=== PATIENT | male | born 1970 | race Asian ===

== ENCOUNTER 2017-08-21 11:30 | Inpatient (IN) | payer BC, OTHER ==
[2017-08-21] MEDS ORDERED: ONDANSETRON 4 MG/2 ML VIAL IVPUSH ONE (12:16)
[2017-08-21] MEDS ORDERED: SODIUM CHLORIDE 1,000 ML IV STA ×3 (12:16→18:44)
[2017-08-21] MEDS ORDERED: ONDANSETRON 4 MG/2 ML VIAL ONE (12:25)
--- NOTE | 2017-08-21 12:25 | PDOC ---
History of Present Illness - General Chief Complaint: Lightheaded Stated Complaint: LETHARGIC, NAUSEA Time Seen by Provider: 08/21/17 11:59 History Source: Patient - History of Present Illness Timing/Duration: other Severity: severe Associated Symptoms: reports: nausea/vomiting, weakness. denies: chest pain, cough, fever/chills, shortness of breath Past History - Past Medical History Allergies/Adverse Reactions: Allergies Allergy/AdvReac Type Severity Reaction Status Date / Time No Known Allergies Allergy Verified 08/21/17 11:44 Home Medications: Ambulatory Orders NK [No Known Home Medication] 08/21/17 Other medical history: none - Surgical History Cholecystectomy: Yes - Immunization History Immunization Up to Date: Yes - Suicide/Smoking/Psychosocial Hx Smoking History: Never smoked Hx Alcohol Use: No Drug/Substance Use Hx: No Review of Systems - Review of Systems Constitutional: No: Chills, Fever Respiratory: No: Shortness of Breath Cardiac (ROS): No: Chest Pain ABD/GI: Yes: Diarrhea, Nausea. No: Vomiting : No: Dysuria Neurological: Yes: Dizziness. No: Headache *Physical Exam - Vital Signs Last Vital Signs Temp Pulse Resp BP Pulse Ox 98.5 F 169 H 20 134/89 99 08/21/17 11:44 08/21/17 11:44 08/21/17 11:44 08/21/17 11:44 08/21/17 11:44 - Physical Exam Comments: 08/21/17 12:25 ill appearing General Appearance: Yes: Appropriately Dressed HEENT: positive: Normal Voice, Other (fillings in place, no e/o infection or dental abscess) Neck: positive: Supple Respiratory/Chest: positive: Lungs Clear, Normal Breath Sounds. negative: Respiratory Distress Cardiovascular: positive: S1, S2, Tachycardia Gastrointestinal/Abdominal: positive: Soft. negative: Tender Integumentary: positive: Dry, Warm Neurologic: positive: Fully Oriented, Alert, Normal Mood/Affect Heart Score/ECG Review - ECG Intrepretation Comment:: 08/21/17 13:53 Sinus tach to 132 BPM ED Treatment Course - LABORATORY CBC & Chemistry Diagram: 08/21/17 12:35 08/21/17 15:19 Medical Decision Making - Medical Decision Making 08/21/17 12:20 47-year-old male denies any past medical history, here with weakness, with dizziness and nausea. Patient states symptoms started approximately 5 days ago after having multiple fillings placed by his dentist. States at the time, he also had x-rays done. Patient states when he went home he began feeling dizzy and unwell and did have 1-2 episodes of non-bloody watery diarrhea. Patient states he feels that symptoms are due to to radiation from x-ray. No fever or chills. Denies chest pain, shortness of breath or palpitations an no h/o cradiac/valvular disease. No history of similar symptoms. No sick contacts or recent travel. No dental pain or facial pain at this time See exam Weakness w/ nausea and diarrhea shortly after dental procedure 5 days ago No e/o dental infection at this time No cardiac/VHD No RF for serious dysentery Pt ill jamie and tachy to 130s at triage, afebrile ?viral, doubt PE as dental procedure only 1 hr per pt -IVF -ekg -labs -reassess 08/21/17 12:25 08/21/17 15:57 Labs all unremarkable. Pt continues to be tachy to 120s on the monitor despite IVF and continues to feel profoundly weak. Will send off TSH and discuss dispo w / ED attg 08/21/17 16:02 As per ED attg, pt to be admitted for further evaluation and workup 08/21/17 16:48 Pt's BP now 90s/80s. IVF in progress. ?multiple nodules on CXR. CT chest pending. Case discussed with Dr. Miller. requesting cardiology consult at this time and continued hydration *DC/Admit/Observation/Transfer Diagnosis at time of Disposition: Weakness, Tachycardia - Discharge Dispostion Condition at time of disposition: Fair Admit: Yes
[2017-08-21 12:48] LABS: BASOPHIL 0.3 % (0-2.0); EOSINOPHIL 0.2 % (0-4.5); MCH 29.1 pg (25.7-33.7); MCHC 34.2 g/dl (32.0-35.9); MEAN CELL VOLUME 84.9 fl (80-96); MEAN PLT VOLUME 8.9 fl (7.5-11.1); NEUTROPHILS 87.2 % (42.8-82.8); PLATELET COUNT 268 K/MM3 (134-434); RDW 12.9 % (11.9-15.9); WHITE BLOOD COUNT 9.8 K/mm3 (4.0-10.0)
[2017-08-21 13:16] LABS: URINE APPEARANCE CLOUDY; URINE BILIRUBIN NEGATIVE (NEGATIVE); URINE BLOOD NEGATIVE (NEGATIVE); URINE GLUCOSE (UA) NEGATIVE (NEGATIVE); URINE KETONE NEGATIVE (NEGATIVE); URINE LEUK ESTERASE NEGATIVE (NEGATIVE); URINE NITRITE NEGATIVE (NEGATIVE); URINE PROTEIN NEGATIVE (NEGATIVE); URINE UROBILINOGEN NEGATIVE mg/dL (0.2-1.0)
[2017-08-21 13:18] LABS: URINE COLOR YELLOW
[2017-08-21 15:37] LABS: ALBUMIN 3.7 g/dl (3.4-5.0); ANION GAP 7 (8-16); CALCIUM 8.9 mg/dL (8.5-10.1); CO2 25 mmol/L (21-32); GLUCOSE,RANDOM 102 mg/dL (74-106)
[2017-08-21 15:39] LABS: BILIRUBIN,TOTAL 0.4 mg/dL (0.2-1.0); CREATININE 0.8 mg/dL (0.7-1.3); SGOT/AST 13 U/L (15-37); SGPT/ALT 18 U/L (12-78); TOT PROT 6.8 g/dl (6.4-8.2)
[2017-08-21 15:42] LABS: ALK PHOS 99 U/L (45-117); CPK 82 IU/L (39-308); TROPONIN I < 0.02 ng/ml (0.00-0.05)
--- NOTE | 2017-08-21 20:54 | HP ---
Admitting History and Physical - Primary Care Physician PCP: Myra Miller - Admission Chief Complaint: weakness History of Present Illness: 47-year-old male denies any past medical history, here with weakness, with dizziness and nausea. Patient states symptoms started approximately 5 days ago after having multiple fillings placed by his dentist. States at the time, he also had x-rays done, no injections given in the mouth. Patient states when he went home he began feeling dizzy and unwell and did have 1-2 episodes of non- bloody watery diarrhea. Patient states he feels that symptoms are due to to radiation from x-ray. No fever or chills. Denies chest pain, shortness of breath or palpitations an no h/o cradiac/valvular disease. - Past Medical History Gastrointestinal: Yes: Crohn's Disease (history of) - Smoking History Smoking history: Never smoked - Alcohol/Substance Use Hx Alcohol Use: No Home Medications - Allergies Allergies/Adverse Reactions: Allergies Allergy/AdvReac Type Severity Reaction Status Date / Time No Known Allergies Allergy Verified 08/21/17 11:44 - Home Medications Home Medications: Ambulatory Orders NK [No Known Home Medication] 08/21/17 Physical Examination Vital Signs: Vital Signs Temperature 97.7 F 08/21/17 19:30 Pulse Rate 93 H 08/21/17 19:30 Respiratory Rate 18 08/21/17 19:30 Blood Pressure 144/85 08/21/17 19:30 O2 Sat by Pulse Oximetry (%) 100 08/21/17 18:42 Constitutional: Yes: No Distress HENT: Yes: Atraumatic Neck: Yes: Supple Cardiovascular: Yes: Tachycardia Respiratory: Yes: CTA Bilaterally Gastrointestinal: Yes: Normal Bowel Sounds Extremities: Yes: WNL Edema: No Peripheral Pulses WNL: Yes Neurological: Yes: WNL, Alert, Oriented Imaging - Results Cat Scan: Report Reviewed Problem List - Problems (1) Tachycardia Assessment/Plan: on tele monitor cardiology note reviewed Code(s): R00.0 - TACHYCARDIA, UNSPECIFIED (2) Weakness Assessment/Plan: feeling better Code(s): R53.1 - WEAKNESS (3) Pulmonary nodule Assessment/Plan: pulmonary note reviewed nothing to be done at this point Code(s): R91.1 - SOLITARY PULMONARY NODULE Assessment/Plan Laboratory Tests 08/21/17 08/21/17 08/21/17 11:30 12:10 12:35 WBC 9.8 RBC 5.47 Hgb 15.9 Hct 46.5 MCV 84.9 MCH 29.1 MCHC 34.2 RDW 12.9 Plt Count 268 MPV 8.9 Neutrophils % 87.2 H Lymphocytes % 8.6 Monocytes % 3.7 L Eosinophils % 0.2 Basophils % 0.3 D-Dimer < 200 Sodium Potassium Chloride Carbon Dioxide Anion Gap BUN Creatinine Creat Clearance w eGFR Random Glucose Lactic Acid Calcium Total Bilirubin AST ALT Alkaline Phosphatase Creatine Kinase Troponin I Total Protein Albumin TSH Urine Color Yellow Urine Appearance Cloudy Urine pH 6.0 Ur Specific [place] 1.025 Urine Protein Negative Urine Glucose (UA) Negative Urine Ketones Negative Urine Blood Negative Urine Nitrite Negative Urine Bilirubin Negative Urine Urobilinogen Negative 08/21/17 08/21/17 08/21/17 12:35 12:35 15:19 WBC RBC Hgb Hct MCV MCH MCHC RDW Plt Count MPV Neutrophils % Lymphocytes % Monocytes % Eosinophils % Basophils % D-Dimer Cancelled Sodium Cancelled 140 Potassium Cancelled 4.2 Chloride Cancelled 108 H Carbon Dioxide Cancelled 25 Anion Gap Cancelled 7 L BUN Cancelled 8 Creatinine Cancelled 0.8 Creat Clearance w eGFR Cancelled > 60 Random Glucose Cancelled 102 Lactic Acid Calcium Cancelled 8.9 Total Bilirubin Cancelled 0.4 AST Cancelled 13 L ALT Cancelled 18 Alkaline Phosphatase Cancelled 99 Creatine Kinase Cancelled 82 Troponin I Cancelled < 0.02 Total Protein Cancelled 6.8 Albumin Cancelled 3.7 TSH Urine Color Urine Appearance Urine pH Ur Specific [place] Urine Protein Urine Glucose (UA) Urine Ketones Urine Blood Urine Nitrite Urine Bilirubin Urine Urobilinogen 08/21/17 08/21/17 17:00 17:35 WBC RBC Hgb Hct MCV MCH MCHC RDW Plt Count MPV Neutrophils % Lymphocytes % Monocytes % Eosinophils % Basophils % D-Dimer Sodium Potassium Chloride Carbon Dioxide Anion Gap BUN Creatinine Creat Clearance w eGFR Random Glucose Lactic Acid 2.4 H* Calcium Total Bilirubin AST ALT Alkaline Phosphatase Creatine Kinase Troponin I Total Protein Albumin TSH 2.36 Urine Color Urine Appearance Urine pH Ur Specific [place] Urine Protein Urine Glucose (UA) Urine Ketones Urine Blood Urine Nitrite Urine Bilirubin Urine Urobilinogen
[2017-08-21 22:22] LABS: CPK 63 IU/L (39-308); TROPONIN I < 0.02 ng/ml (0.00-0.05)
[2017-08-21 23:42] VITALS: BMI 23.1
[2017-08-22 07:09] LABS: BASOPHIL 0.4 % (0-2.0); EOSINOPHIL 1.1 % (0-4.5); MCH 29.2 pg (25.7-33.7); MCHC 34.1 g/dl (32.0-35.9); MEAN CELL VOLUME 85.8 fl (80-96); MEAN PLT VOLUME 8.9 fl (7.5-11.1); NEUTROPHILS 66.5 % (42.8-82.8); PLATELET COUNT 224 K/MM3 (134-434); RDW 12.8 % (11.9-15.9); WHITE BLOOD COUNT 7.7 K/mm3 (4.0-10.0)
[2017-08-22 07:56] LABS: ALBUMIN 3.2 g/dl (3.4-5.0); ALK PHOS 87 U/L (45-117); ANION GAP 6 (8-16); BILIRUBIN,TOTAL 0.7 mg/dL (0.2-1.0); CALCIUM 8.4 mg/dL (8.5-10.1); CO2 28 mmol/L (21-32); CREATININE 0.9 mg/dL (0.7-1.3); GLUCOSE,RANDOM 87 mg/dL (74-106); SGOT/AST 10 U/L (15-37); SGPT/ALT 17 U/L (12-78); TOT PROT 5.9 g/dl (6.4-8.2)
--- NOTE | 2017-08-22 10:26 | PN ---
Progress Note (short form) - Note Progress Note: Chief Complaint: Events noted, notes reviewed, palpitations referable to sinus tachycardia, denies any chest pain or dyspnea History of Present Illness: Seen and examined. Full consult dictated Echocardiography pending - Current Medication List None Review of Systems - Review of Systems Constitutional: no symptoms reported Respiratory: denies: Cough or Sputum Production Cardiovascular: as noted above Gastrointestinal: denies Nausea, Vomiting, Constipation or Abdominal Pain but reported Diarrhea Genitourinary: No symptoms reported Musculoskeletal: No symptoms reported Endocrine: No symptoms reported - Objective Vital Signs: Last Vital Signs Temp Pulse Resp BP Pulse Ox 97.8 F 69 16 107/74 98 08/22/17 05:44 08/22/17 05:44 08/22/17 05:44 08/22/17 05:44 08/21/17 21:00 Intake & Output 08/19/17 08/20/17 08/21/17 08/22/17 23:59 23:59 23:59 23:59 Intake Total 1999 100 Balance 1999 100 Weight 157 lb Constitutional: No Distress, Calm Neck: Supple Negative JVD Cardiovascular: S1 S2 Regular Rate and Rhythm, Grade 1/6 Systolic Murmur Respiratory: clear to A&P Gastrointestinal: Soft, Benign Normal Bowel Sounds Ext: No Edema Labs: CBC, BMP 08/22/17 05:35 08/22/17 05:35 Assessment/Plan ASSESSMENT: 1. Palpitations referable to sinus tachycardia, probably reactionary to dehydration no evidence of SVT 2. Heart Murmur, etiology to be determined 3. History of Crohn's disease PLAN: 1. No therapy initiation is recommended for the above noted reactionary sinus tachycardia 2. Echocardiography for evaluation of LV function and the above noted heart murmur Kathryn Hagan M.D.
[2017-08-22 11:29] LABS: CPK 75 IU/L (39-308); TROPONIN I < 0.02 ng/ml (0.00-0.05)
--- NOTE | 2017-08-22 11:42 | CONSULT ---
Consultation: PULMONARY CONSULT REQUESTING PROVIDER: Dr. Miller CONSULT REQUEST: We have been asked to medically evaluate this patient for PULMONARY NODULES HISTORY OF PRESENT ILLNESS: Pt is a 47yo M w/ PMHx of Crohn's disease, on no home medications, who presented to the ER with weakness and dizziness. He had associated non-bloody watery diarrhea, and endorses decreased PO intake recently. Denies fevers, chills, sick contacts, new foods. Endorses palpitations. Today, patient feels much better. In regards to pulmonary nodule, patient is asymptomatic, denies CP or SOB. Denies smoking history. Denies family hx of lung cancer. Has never had pulmonary disorders, and does not follow with a third hand. REVIEW OF SYSTEMS: CONSTITUTIONAL: Absent: fever, chills, diaphoresis, generalized weakness, malaise, loss of appetite, weight change HEENT: Absent: rhinorrhea, nasal congestion, throat pain, throat swelling, difficulty swallowing, mouth swelling, ear pain, eye pain, visual changes CARDIOVASCULAR: Absent: chest pain, syncope, palpitations, irregular heart rate, lightheadedness , peripheral edema Present: palpitations RESPIRATORY: Absent: cough, shortness of breath, dyspnea with exertion, orthopnea, wheezing, stridor, hemoptysis GASTROINTESTINAL: Absent: abdominal pain, abdominal distension, nausea, vomiting, diarrhea, constipation, melena, hematochezia GENITOURINARY: Absent: dysuria, frequency, urgency, hesitancy, hematuria, flank pain, genital pain MUSCULOSKELETAL: Absent: myalgia, arthralgia, joint swelling, back pain, neck pain SKIN: Absent: rash, itching, pallor HEMATOLOGIC/IMMUNOLOGIC: Absent: easy bleeding, easy bruising, lymphadenopathy, frequent infections ENDOCRINE: Absent: unexplained weight gain, unexplained weight loss, heat intolerance, cold intolerance NEUROLOGIC: Absent: headache, focal weakness or paresthesias, dizziness, unsteady gait, seizure, mental status changes, bladder or bowel incontinence PSYCHIATRIC: Absent: anxiety, depression, suicidal or homicidal ideation, hallucinations. PHYSICAL EXAMINATION Vital Signs Temperature 97.8 F 08/22/17 05:44 Pulse Rate 108 Respiratory Rate 16 08/22/17 05:44 Blood Pressure 107/74 08/22/17 05:44 O2 Sat by Pulse Oximetry (%) 99 GEN: AAOx3, NAD, Lying comfortably HEENT: PERRLA, EOMi, no cervical LAD CV: S1, S2, tachycardic rate, regular rhythm, no murmurs LUNG: CTABL ABD: Soft, NT, ND, hyperactive BS MSK: No edema, no erythema NEURO: CN 2-12 intact, no sensation deficits, MSK 5/5 Laboratory Last Values WBC 7.7 K/mm3 (4.0-10.0) 08/22/17 05:35 RBC 4.71 M/mm3 (4.00-5.60) 08/22/17 05:35 Hgb 13.8 GM/dL (11.7-16.9) D 08/22/17 05:35 Hct 40.4 % (35.4-49) 08/22/17 05:35 MCV 85.8 fl (80-96) 08/22/17 05:35 MCH 29.2 pg (25.7-33.7) 08/22/17 05:35 MCHC 34.1 g/dl (32.0-35.9) 08/22/17 05:35 RDW 12.8 % (11.9-15.9) 08/22/17 05:35 Plt Count 224 K/MM3 (134-434) 08/22/17 05:35 MPV 8.9 fl (7.5-11.1) 08/22/17 05:35 Neutrophils % 66.5 % (42.8-82.8) D 08/22/17 05:35 Lymphocytes % 25.7 % (8-40) D 08/22/17 05:35 Monocytes % 6.3 % (3.8-10.2) 08/22/17 05:35 Eosinophils % 1.1 % (0-4.5) D 08/22/17 05:35 Basophils % 0.4 % (0-2.0) 08/22/17 05:35 D-Dimer Cancelled 08/21/17 12:35 Sodium 142 mmol/L (136-145) 08/22/17 05:35 Potassium 4.2 mmol/L (3.5-5.1) 08/22/17 05:35 Chloride 108 mmol/L (98-107) H 08/22/17 05:35 Carbon Dioxide 28 mmol/L (21-32) 08/22/17 05:35 Anion Gap 6 (8-16) L 08/22/17 05:35 BUN 7 mg/dL (7-18) 08/22/17 05:35 Creatinine 0.9 mg/dL (0.7-1.3) 08/22/17 05:35 Creat Clearance w eGFR > 60 (>60) 08/22/17 05:35 Random Glucose 87 mg/dL (74-106) 08/22/17 05:35 Lactic Acid 2.4 mmol/L (0.4-2.0) H* 08/21/17 17:35 Calcium 8.4 mg/dL (8.5-10.1) L 08/22/17 05:35 Total Bilirubin 0.7 mg/dL (0.2-1.0) D 08/22/17 05:35 AST 10 U/L (15-37) L D 08/22/17 05:35 ALT 17 U/L (12-78) 08/22/17 05:35 Alkaline Phosphatase 87 U/L (45-117) 08/22/17 05:35 Creatine Kinase 75 IU/L (39-308) 08/22/17 05:35 Troponin I < 0.02 ng/ml (0.00-0.05) 08/22/17 05:35 Total Protein 5.9 g/dl (6.4-8.2) L 08/22/17 05:35 Albumin 3.2 g/dl (3.4-5.0) L 08/22/17 05:35 TSH 2.36 uIU/ml (0.358-3.74) 08/21/17 17:00 Urine Color Yellow 08/21/17 11:30 Urine Appearance Cloudy 08/21/17 11:30 Urine pH 6.0 (5.0-8.0) 08/21/17 11:30 Ur Specific [place] 1.025 (1.005-1.025) 08/21/17 11:30 Urine Protein Negative (NEGATIVE) 08/21/17 11:30 Urine Glucose (UA) Negative (NEGATIVE) 08/21/17 11:30 Urine Ketones Negative (NEGATIVE) 08/21/17 11:30 Urine Blood Negative (NEGATIVE) 08/21/17 11:30 Urine Nitrite Negative (NEGATIVE) 08/21/17 11:30 Urine Bilirubin Negative (NEGATIVE) 08/21/17 11:30 Urine Urobilinogen Negative mg/dL (0.2-1.0) 08/21/17 11:30 ASSESSMENT/PLAN: Pt is a 47yo M w/ PMHx of Crohn's disease, on no home medications, who presented to the ER with weakness and dizziness, ?viral illness, admitted for tachycardia, with incidental asymptomatic pulmonary nodules. # Pulmonary Nodules - multiple, largest <6mm, incidental, asymptomatic - Incidentally detected on CXR - CT chest shows cluster of tiny calcified nodules in ADDIE (largest 4.5mm) - Low risk pt, according to new 2017 guidelines, no routine followup needed Rest as per Primary Team We will continue to follow the patient. Thank you for this consultative opportunity. Celso Randall MD - PGY1 Visit type - Emergency Visit Emergency Visit: No - New Patient This patient is new to me today: Yes Date on this admission: 08/22/17 - Critical Care Critical Care patient: No
--- NOTE | 2017-08-22 11:52 | PN ---
Progress Note (short form) - Note Progress Note: Echocardiography reviewed at the bedside revealed normal LV size and function with redundant mitral valve leaflet, and no significant valvular regurgitation Can be D/C home from cardiovascular point of view and F/U with PMD and if needed with our service if symptoms recur Thank you Kathryn Hagan M.D.
--- NOTE | 2017-08-22 14:25 | EKG ---
Test Reason : Blood Pressure : / mmHG Vent. Rate : 132 BPM Atrial Rate : 132 BPM P-R Int : 142 ms QRS Dur : 082 ms QT Int : 302 ms P-R-T Axes : 069 094 056 degrees QTc Int : 447 ms SINUS TACHYCARDIA POSSIBLE LEFT ATRIAL ENLARGEMENT S1 Q3 PATTERN RIGHTWARD AXIS ATRIAL ABNORMALITY WHEN COMPARED WITH ECG OF 07-JUN-2011 10:10, VENT. RATE HAS INCREASED BY 48 BPM NO CLINICAL INFORMATION IS AVAILABLE , PULMONARY DISEASE VS PTE NEED EXCLUSION Confirmed by ELSI CHARLES MD ([id number]) on 08/22/2017 2:25:33 PM Referred By: Confirmed By:LESI CHARLES MD
--- NOTE | 2017-08-22 15:12 | CONS ---
DATE OF CONSULTATION: 08/22/2017 REQUESTING PHYSICIAN: Myra Miller MD CHIEF COMPLAINT: Evaluation of palpitations, cardiac arrhythmia. History was obtained from the patient. A 47-year-old male of descent with known history of Crohn disease, who presented to [facility] with progressive weakness, lightheadedness, and palpitations which have been noted for the last several days. Patient stated that last week he had dental procedure performed secondary to which he had felt generalized weakness, and subsequently, he had 2 bouts of diarrhea with progressive weakness and initiation of palpitations. Palpitations described as rapid heartbeat. Patient reported lightheadedness but denied any syncopal episodes. Patient did not report any chest discomfort. Patient denies any history of dyspnea, orthopnea, paroxysmal nocturnal dyspnea, or peripheral edema. Patient denies any prior history of a heart murmur or congenital cardiac defect. Patient does not report any history of coronary artery disease or congestive heart failure. PAST MEDICAL HISTORY: Crohn colitis. PAST SURGICAL HISTORY: Cholecystectomy. SOCIAL HISTORY: Nonsmoker. FAMILY HISTORY: No family history of premature coronary artery disease. ALLERGIES: None reported. MEDICAL THERAPY AT HOME: None. REVIEW OF SYSTEMS: Head and Neck: Denied headache, photophobia, blurring of vision. Respiratory: No cough or sputum production. Cardiovascular: As noted above. Gastrointestinal: Reported diarrhea but denied any nausea, vomiting, abdominal discomfort. Genitourinary: No symptoms reported. Musculoskeletal: No symptoms reported. Endocrine: No symptoms reported. PHYSICAL EXAMINATION: Vital Signs: Blood pressure is 107/74 mmHg. Pulse rate currently is 69. In the emergency room, pulse rate was in the 120s/130s. Temperature 97.8. Head and Neck: Pupils equal and reactive to light and accommodation. Extraocular muscles are intact. Anicteric sclerae. Negative JVD. No bruit appreciated. Chest: Clear to auscultation and percussion. Cardiovascular: S1, S2. Regular. Questionable split S2 and grade 1 systolic apical murmur. No gallops. Abdomen: Soft, benign. Normoactive bowel sounds. Extremities: Negative edema. Intact distal pulses. No calf tenderness. DIAGNOSTIC DATA: Electrocardiogram revealed sinus tachycardia, otherwise within normal limits. CBC revealed white cell count of 7.7, hemoglobin 13.8, platelet count 224. Basic metabolic profile reveals sodium 142, potassium 4.2, BUN of 7, creatinine 0.9, glucose 87. TSH value was noted. ASSESSMENT: 1. Palpitations referable to sinus tachycardia, probably reactionary due to dehydration. No evidence of supraventricular tachycardia. 2. Heart murmur, etiology of which is to be determined. 3. History of Crohn disease. RECOMMENDATION: 1. No therapy initiation is recommended for the above-noted reactionary sinus tachycardia. 2. Echocardiography for evaluation of left ventricular size and function and the above-noted heart murmur. Thank you for the kind referral. MICHELE EASTON M.D. [id number]
--- NOTE | 2017-08-22 16:22 | PN ---
Teaching Attending Note Name of Resident: Celso Randall ATTENDING PHYSICIAN STATEMENT I saw and evaluated the patient. I reviewed the resident's note and discussed the case with the resident. I agree with the resident's findings and plan as documented. SUBJECTIVE: 47 M, Crohn's disease (on no maintenance medications). Admitted via the ER due to weakness and dizziness. Reported non-bloody watery diarrhea. Denies fevers, chills, or sick contacts. Called for calcified sub-centimeter nodules in the ADDIE. No previous CT imaging. No CP or SOB. No hemoptysis or night sweats. Intake & Output 08/19/17 08/20/17 08/21/17 08/22/17 23:59 23:59 23:59 23:59 Intake Total 1999 870 Balance 1999 870 Weight 157 lb Last Vital Signs Temp Pulse Resp BP Pulse Ox 99.1 F 111 H 16 139/79 98 08/22/17 14:11 08/22/17 14:11 08/22/17 14:11 08/22/17 14:11 08/21/17 21:00 Home Medication List Medication Instructions Recorded Confirmed Type NK [No Known Home Medication] 08/21/17 08/21/17 History GEN: AAOx3, NAD, Lying comfortably HEENT: PERRLA, EOM, no cervical LAD CV: S1, S2, regular rhythm, no murmurs LUNG: CTABL ABD: Soft, NT, ND MSK: No edema, no erythema NEURO: Non-focal Laboratory Results - last 24 hr 08/21/17 08/21/17 08/21/17 11:30 17:00 17:35 WBC RBC Hgb Hct MCV MCH MCHC RDW Plt Count MPV Neutrophils % Lymphocytes % Monocytes % Eosinophils % Basophils % Sodium Potassium Chloride Carbon Dioxide Anion Gap BUN Creatinine Creat Clearance w eGFR Random Glucose Lactic Acid 2.4 H* Calcium Total Bilirubin AST ALT Alkaline Phosphatase Creatine Kinase Troponin I Total Protein Albumin TSH 2.36 Urine Color Yellow Urine Appearance Cloudy Urine pH 6.0 Ur Specific [place] 1.025 Urine Protein Negative Urine Glucose (UA) Negative Urine Ketones Negative Urine Blood Negative Urine Nitrite Negative Urine Bilirubin Negative Urine Urobilinogen Negative 08/21/17 08/22/17 08/22/17 21:00 05:35 05:35 WBC 7.7 RBC 4.71 Hgb 13.8 D Hct 40.4 MCV 85.8 MCH 29.2 MCHC 34.1 RDW 12.8 Plt Count 224 MPV 8.9 Neutrophils % 66.5 D Lymphocytes % 25.7 D Monocytes % 6.3 Eosinophils % 1.1 D Basophils % 0.4 Sodium 142 Potassium 4.2 Chloride 108 H Carbon Dioxide 28 Anion Gap 6 L BUN 7 Creatinine 0.9 Creat Clearance w eGFR > 60 Random Glucose 87 Lactic Acid Calcium 8.4 L Total Bilirubin 0.7 D AST 10 L D ALT 17 Alkaline Phosphatase 87 Creatine Kinase 63 Troponin I < 0.02 Total Protein 5.9 L Albumin 3.2 L TSH Urine Color Urine Appearance Urine pH Ur Specific [place] Urine Protein Urine Glucose (UA) Urine Ketones Urine Blood Urine Nitrite Urine Bilirubin Urine Urobilinogen 08/22/17 05:35 WBC RBC Hgb Hct MCV MCH MCHC RDW Plt Count MPV Neutrophils % Lymphocytes % Monocytes % Eosinophils % Basophils % Sodium Potassium Chloride Carbon Dioxide Anion Gap BUN Creatinine Creat Clearance w eGFR Random Glucose Lactic Acid Calcium Total Bilirubin AST ALT Alkaline Phosphatase Creatine Kinase 75 Troponin I < 0.02 Total Protein Albumin TSH Urine Color Urine Appearance Urine pH Ur Specific [place] Urine Protein Urine Glucose (UA) Urine Ketones Urine Blood Urine Nitrite Urine Bilirubin Urine Urobilinogen ASSESSMENT/PLAN: Calcified subcentimeter (4.5 mm largest lesion) ADDIE nodules -> likely old granulomatous disease Crohn's disease (?) Viral illness As the patient is considered low risk, according to 2017 Fleischner guidelines, no routine CT followup needed No smoking No Pulmonary contraindication for D/C Dr Gimenez
--- NOTE | 2017-08-22 18:22 | PN ---
Progress Note, Physician - Objective Vital Signs: Vital Signs Temperature 99.1 F 08/22/17 14:11 Pulse Rate 111 H 08/22/17 14:11 Respiratory Rate 16 08/22/17 14:11 Blood Pressure 139/79 08/22/17 14:11 O2 Sat by Pulse Oximetry (%) 98 08/22/17 10:00 Constitutional: Yes: Anxious HENT: Yes: Atraumatic Neck: Yes: Supple Cardiovascular: Yes: Regular Rate and Rhythm, Tachycardia Respiratory: Yes: CTA Bilaterally Gastrointestinal: Yes: Normal Bowel Sounds Extremities: Yes: WNL Neurological: Yes: Alert, Oriented Labs: CBC, BMP 08/22/17 05:35 08/22/17 05:35 Problem List - Problems (1) Tachycardia Assessment/Plan: on tele monitor cardiology note reviewed Code(s): R00.0 - TACHYCARDIA, UNSPECIFIED (2) Weakness Assessment/Plan: feeling better Code(s): R53.1 - WEAKNESS (3) Pulmonary nodule Assessment/Plan: pulmonary note reviewed nothing to be done at this point Code(s): R91.1 - SOLITARY PULMONARY NODULE (4) Fever Assessment/Plan: low grade had dental procedure will start abx endcxs will send qft test ...r/o tb id consult Code(s): R50.9 - FEVER, UNSPECIFIED
[2017-08-22] MEDS ORDERED: ACETAMINOPHEN 325 MG TABLET (FP) PO PRN (18:39)
--- NOTE | 2017-08-22 18:58 | CON.ID ---
Consult Consult Specialty:: infectious diseases Reason for Consultation:: fever,lactic acidosis - History of Present Illness Chief Complaint: weakness lethargy History of Present Illness: ,of Pt is a 47yo M w/ PMHx of Crohn's disease, on no home medications, who presented to the ER with weakness and dizziness. He had associated non-bloody watery diarrhea, and endorses decreased PO intake recently. Denies fevers, chills, sick contacts, new foods. . Today, patient feels much better. here with weakness, with dizziness and nausea. Patient states symptoms started approximately 5 days ago after having multiple fillings placed by his dentist. States at the time, he also had x-rays done, no injections given in the mouth. Patient states when he went home he began feeling dizzy and unwell and did have 1-2 episodes of non-bloody watery diarrhea. patient was worked up and was having fever and was found to ahve lactic acidosis currently he feels much better and denies any issues - History Source History Provided By: Patient Limitations to Obtaining History: No Limitations - Past Medical History Gastrointestinal: Yes: Crohn's Disease (history of) - Alcohol/Substance Use Hx Alcohol Use: No - Smoking History Smoking history: Never smoked Home Medications - Allergies Allergies/Adverse Reactions: Allergies Allergy/AdvReac Type Severity Reaction Status Date / Time No Known Allergies Allergy Verified 08/21/17 11:44 - Home Medications Home Medications: Ambulatory Orders NK [No Known Home Medication] 08/21/17 Review of Systems - Review of Systems Constitutional: reports: Fever, Weakness Eyes: reports: No Symptoms HENT: reports: No Symptoms Neck: reports: No Symptoms Cardiovascular: reports: No Symptoms Respiratory: reports: No Symptoms Gastrointestinal: reports: Abdominal Pain, Diarrhea Genitourinary: reports: No Symptoms Musculoskeletal: reports: No Symptoms Integumentary: reports: No Symptoms Neurological: reports: No Symptoms Endocrine: reports: No Symptoms Hematology/Lymphatic: reports: No Symptoms Psychiatric: reports: No Symptoms Physical Exam Vital Signs: Vital Signs Temperature 99.1 F 08/22/17 14:11 Pulse Rate 111 H 08/22/17 14:11 Respiratory Rate 16 08/22/17 14:11 Blood Pressure 139/79 08/22/17 14:11 O2 Sat by Pulse Oximetry (%) 98 08/22/17 10:00 Constitutional: Yes: No Distress, Calm Eyes: Yes: Conjunctiva Clear HENT: Yes: Atraumatic Neck: Yes: Supple, Trachea Midline Cardiovascular: Yes: Regular Rate and Rhythm Respiratory: Yes: Regular, CTA Bilaterally Gastrointestinal: Yes: Normal Bowel Sounds, Soft Musculoskeletal: Yes: WNL Extremities: Yes: WNL Neurological: Yes: Alert, Oriented Psychiatric: Yes: Alert, Oriented Labs: CBC, BMP 08/22/17 05:35 08/22/17 05:35 Imaging - Results Chest X-ray: Report Reviewed, Image Reviewed Cat Scan: Report Reviewed, Image Reviewed Assessment/Plan pul nodules lactic acidosis fever abd pain weakness patient was started on clinda patient could very well ahve got this infection through his mouth plan will give unasyn will see how patient does repeat lactic acid if everything is ok will deescalate abx rest as per primary
[2017-08-22] MEDS ORDERED: PT OWN MED DRAWER 7, Y5N ONE ×2 (19:30→20:39)
--- NOTE | 2017-08-22 19:47 | EKG ---
Test Reason : Blood Pressure : / mmHG Vent. Rate : 113 BPM Atrial Rate : 113 BPM P-R Int : 142 ms QRS Dur : 090 ms QT Int : 320 ms P-R-T Axes : 062 082 047 degrees QTc Int : 438 ms SINUS TACHYCARDIA PROBABLE LEFT ATRIAL ABNORMALITY. WHEN COMPARED WITH ECG OF 21-AUG-2017 11:55, NO SIGNIFICANT CHANGE WAS FOUND Confirmed by ELSI CHARLES MD ([id number]) on 08/22/2017 7:47:30 PM Referred By: MICHELE EASTON Confirmed By:ELSI CHARLES MD
[2017-08-22] MEDS: CLINDAMYCIN 300 MG PREMIX IVPB 50 ML IVPB SCH (20:45)
[2017-08-22] MEDS: AMPICILLIN NA/SULBACTAM NA 3 GM in SODIUM CHLORIDE 100 ML IVPB SCH (21:34)
[2017-08-22 22:35] LABS: CPK 99 IU/L (39-308)
[2017-08-22 22:36] LABS: TROPONIN I < 0.02 ng/ml (0.00-0.05)
[2017-08-23] MEDS: CLINDAMYCIN 300 MG PREMIX IVPB 50 ML IVPB SCH (02:45)
[2017-08-23] MEDS: AMPICILLIN NA/SULBACTAM NA 3 GM in SODIUM CHLORIDE 100 ML IVPB SCH (03:27)
[2017-08-23 06:35] VITALS: BP 138/78; PULSE 81; TEMP 99.5
--- NOTE | 2017-08-24 17:17 | DS ---
Physical Examination Vital Signs: Vital Signs Temperature 99.5 F 08/23/17 06:00 Pulse Rate 81 08/23/17 06:00 Respiratory Rate 16 08/23/17 06:00 Blood Pressure 138/78 08/23/17 06:00 O2 Sat by Pulse Oximetry (%) 97 08/22/17 20:25 Labs: CBC, BMP 08/22/17 05:35 08/22/17 05:35 Discharge Summary Reason For Visit: WEAKNESS Condition: Fair - Instructions Disposition: ELOPED - Home Medications Comprehensive Discharge Medication List: Ambulatory Orders NK [No Known Home Medication] 08/21/17 STEPHEN
[2017-08-25 14:15] LABS: QFT TB AG - NIL VALUE 4.89 IU/mL (.); QUANT MITOGEN VALUE >10.00 IU/mL (.); QUANT NIL VALUE 0.06 IU/mL (.); QUANT TB AG VALUE 4.95 IU/mL (.); QUANTIFERON GOLD Positive (Negative)
== END 2017-08-23 09:09 | disposition left against medical advice (07) | DRG 309 ==
LOC: JER 11:30 → JERBED 16:51 → J8W 19:25 → J4S 08-22 00:41
PROVIDERS: ADMIT Internal Medicine; ATTEND Internal Medicine
DX: R00.0 Tachycardia, unspecified (principal); K50.90 Crohn's disease, unspecified, without complications; E87.2 Acidosis; R53.1 Weakness; R00.2 Palpitations; R01.1 Cardiac murmur, unspecified; R91.8 Other nonspecific abnormal finding of lung field; R50.9 Fever, unspecified
CPT/HCPCS: 36415; 71010-TC; 71250-TC; 80053; 81003; 83605; 84443; 84484; 85025; 85379; 86480; 87040; 87086; 87804; 93005; 93010; 93306-TC; 99284-25